=== PATIENT | male | born 1960 | race African-American/Black ===

== ENCOUNTER 2017-07-03 17:41 | Emergency (ER) | payer OTHER ==
[~2017-07-03] VITALS: Ht 175.3 cm; Wt 95.3 kg
--- NOTE | ~2017-07-03 | EKG ---
[place] [address] [address] [facility] / ?.?? [place] [address] ELECTROCARDIOGRAM REPORT Name: TAHIRA MARRUFO Room #: DEP [facility] [place] [id number] Admission: 07/03/17 Attend Phys: Discharge: 07/03/17 Date of : 60 Report #: [id number] THIS REPORT FOR: //name// [facility] [place] ED Test Date: 2017-07-03 Test Time: 18:05:24 Pat Name: TAHIRA MARRUFO Department: Room: Gender: Claim Attorney: : 1960 Requested By: Karthik Murphy Order Number: [id number] MD: Moe Keys Measurements Intervals [place] Rate: 67 P: 20 KS: 164 QRS: 12 QRSD: 98 T: 24 QT: 398 QTc: 420 Interpretive Statements Sinus rhythm No significant abnormality Baseline wander in lead(s) I,III,aVL No previous ECG available for comparison Electronically Signed On 07-05-2017 13:38:28 CDT by Moe Keys [email or web address] <ELECTRONICALLY SIGNED> By: Moe Keys MD, [facility] 07/05/17 1338 1804 04 Moe Keys MD, FACC /EPI
[2017-07-03] MEDS ORDERED: XANAX1 MG PO (18:21)
[2017-07-03] MEDS ORDERED: NORVASC5 MG PO (18:22)
[2017-07-03] MEDS ORDERED: LISINOPRIL20 MG PO (18:23)
[2017-07-03] MEDS ORDERED: HYDROCHLOROTH12.5 M1 PO (18:23)
[2017-07-03] MEDS ORDERED: PROPRANOLOL 1010 MG PO (18:24)
[2017-07-03] MEDS ORDERED: FLOMAX0.4 MG PO (18:25)
[2017-07-03] MEDS ORDERED: WELLBUTRIN SR150 MG PO (18:25)
[2017-07-03 18:32] LABS: ABSOLUTE NEUTROPHILS 1.8 thou/uL (1.4-8.2); BASOPHILS 0.6 % (0.0-2.0); EOSINOPHILS 2.3 % (0.0-3.0); HEMATOCRIT 36.2 % (42.0-52.0); HEMOGLOBIN 11.8 gm/dL (14.0-18.0); LYMPHOCYTES 32.7 % (24.0-44.0); MCH 27.2 pg (26.0-34.0); MCHC 32.5 g/dL (28.0-37.0); MCV 83.6 fL (80.0-100.0); MONOCYTES 10.4 % (1.0-8.0); PLATELET COUNT 177 thou/uL (150-400); RBC 4.33 mil/uL (4.50-6.00); RDW 15.6 % (10.5-14.5); WBC 3.3 thou/uL (4.0-11.0)
[2017-07-03 18:36] LABS: MANUAL DIFF NO
[2017-07-03 18:42] LABS: CALCIUM 9.2 mg/dL (8.5-10.1); CREATININE 1.5 mg/dL (0.7-1.3); POTASSIUM 3.7 mmol/L (3.5-5.1)
[2017-07-03 18:49] LABS: ALBUMIN 4.2 g/dL (3.4-5.0); TOTAL BILIRUBIN 0.2 mg/dL (<0.1-1.0); TOTAL PROTEIN 7.9 g/dL (6.4-8.2)
[2017-07-03] MEDS ORDERED: NORCO 5-325 TA1 EACH PO (20:28)
[2017-07-03] MEDS ORDERED: ZOFRAN ODT8 MG PO (20:28)
[2017-07-03 23:21] VITALS: BP 125/76
== END 2017-07-03 21:30 | disposition home or self-care (01) ==
LOC: ER 17:41
PROVIDERS: Nurse Practitioner Family
DX: R10.31 Right lower quadrant pain (principal); D72.819 Decreased white blood cell count, unspecified; F10.99 Alcohol use, unspecified with unspecified alcohol-induced disorder; Z85.46 Personal history of malignant neoplasm of prostate